=== PATIENT | male | born 1990 | race African-American/Black ===

== ENCOUNTER 2017-01-30 19:12 | Emergency (ER) ==
[2017-01-30] MEDS ORDERED: ASPIRIN PO STA (20:08)
--- NOTE | 2017-01-30 20:15 | PROVIDER DOCUMENTATION ---
Addendum entered and electronically signed by Karma Blue Scribe 01/30/17 22:07 : EKG Interpretation - EKG Time of EKG reading by physician:: 21:20 EKG Read and Signed by:: Nehemias Pierce EKG Interpretation (*Must complete 3 of following elements*): Normal Rate: 62 Rhythm: normal sinus rhythm Comments: normal ECG Original Note: HPI-General Adult - General Chief Complaint: Dizziness Stated Complaint: CHEST PAIN,DIZZY,HEADACHE Time Seen by Provider: 01/30/17 19:58 Source: patient Allergies/Adverse Reactions: Patient Allergies Allergy/AdvReac Type Severity Reaction Status Date / Time No Known Allergies Allergy Verified 12/25/16 13:51 Home Medications: Home Medication List Medication Instructions Recorded Confirmed Last Taken Type Hydroxyzine Pamoate [Vistaril] 25 mg PO BID PRN #20 capsule 12/25/16 Unknown Rx Hydroxyzine [Atarax] 25 mg PO TID #60 tablet 01/30/17 Unknown Rx - History of Present Illness -Gen Adult Nature of Presenting Problems: 26 y/o AAM c/o substernal chest pain that 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 Patient had this once before that awoke him from his sleep, has not f/ u with a plant maintenance manager. Patient states he has been waking up at night de to thoughts he was going to . He came home 3-4 years ago and his brother was when he found him. Has been taking a family member's [employer] to help him sleep at night for this. States he would like to f/u with mental health outpatient for this. Denies SI or HI. Patient's chest pain is no longer present. Denies sob, cough or recent illness. Review of Systems - Adult - REVIEW OF SYSTEMS - ADULT Constitutional: reports: no symptoms reported. denies: chills, fever, fatique Eyes: reports: no symptoms reported. denies: decreased vision, blurred vision, double vision, eye pain Ears, Nose, Mouth & Throat: reports: no symptoms reported. denies: ear pain, epistaxis, nose pain, throat pain Cardiovascular: reports: see HPI, chest pain. denies: irregular heart rate, palpitations Respiratory: reports: no symptoms reported. denies: cough, shortness of breath , wheezing Gastrointestinal: reports: no symptoms reported. denies: abdominal pain, diarrhea, nausea, vomiting Genitourinary: reports: no symptoms reported. denies: dysuria, discharge, frequency, incontinence Musculoskeletal: reports: no symptoms reported. denies: bone pain, back pain, muscle aches Integumentary: reports: no symptoms reported Neurological: reports: no symptoms reported. denies: ataxia, dizziness/vertigo , headache/migraines Psychiatric: reports: anxiety Endocrine: reports: no symptoms reported Hematologic/Lymphatic: reports: no symptoms reported Allergic/Immunologic: reports: no symptoms reported All Other Systems: Reviewed and Negative Past History - Adult - PAST MEDICAL HISTORY-ADULT Review of Records: reports: Old Records Reviewed, Nursing Assessment Review, Medications Reviewed Major Childhood Illnesses: reports: denies history Cardiovascular: reports: denies history Respiratory: reports: denies history Gastrointestinal: reports: denies history Genitourinary: reports: denies history Musculoskeletal: reports: denies history Neurological: reports: denies history Endocrine/Immune: reports: denies history Other Conditions: reports: denies history - PRIOR SURGERIES/PROCEDURES Surgical/Procedure History: reports: reviewed, not pertinent - IMMUNIZATION STATUS Childhood Immunizations: See Nurse Assessment Flu Vaccine: See Nurse Assessment - FAMILY HISTORY Family History: reviewed, not pertinent - SOCIAL HISTORY Smoking: denies Substance Use: none/never Alcohol Use Frequency: never Living Situation: family Physical Exam-General - PHYSICAL EXAM-ADULT Initial Vital Signs Reviewed: Yes - CONSTITUTIONAL General Appearance: appears well, alert, no apparent distress - EYES Eyes: PERRL/EOMI, pink conjunctivae - HEAD, EARS, NOSE, MOUTH & THROAT HENMT: normocephalic/atraumatic, moist mucous membranes - NECK Neck: non-tender, full range of motion, supple, normal inspection - RESPIRATORY Respiratory: chest non-tender, lungs clear, normal breath sounds, no pleuratic chest pain, no respiratory distress, no accessory muscle use. negative: respiratory distress, decreased breath sounds, accessory muscle use, crackles, rales, rhonchi, wheezing - CARDIOVASCULAR Cardiovascular: normal peripheral pulses, regular rate, rhythm - CHEST (BREASTS) Chest/Breast: negative: tenderness - MUSCULOSKELETAL Extremity: normal gait - SKIN Integumentary: normal color, normal turgor, warm/dry - NEUROLOGIC Neurologic: grossly normal, no motor/sensory deficits - PSYCHIATRIC Psych/Mental Status: normal mood/affect, normal thought content, normal thought process, oriented x 3 Progress - PLAN OF CARE/RESULTS Progress/Plan/Lab Results: Vital Signs Temp Pulse Resp BP Pulse Ox 01/30/17 19:26 98.2 F 63 18 117/77 100 No Known Allergies Allergy (Verified 12/25/16 13:51) Hydroxyzine Pamoate [Vistaril] 25 mg PO BID PRN #20 capsule 12/25/16 Laboratory 01/30/17 01/30/17 01/30/17 20:20 20:20 20:20 WBC 9.51 RBC 5.63 Hgb 15.7 Hct 43.5 MCV 77.3 L MCH 27.9 MCHC 36.1 RDW Std Deviation 12.2 Plt Count 249 MPV 9.8 Immature Gran % (Auto) 0.1 Neut % (Auto) 70.9 Lymph % (Auto) 21.1 [place] % (Auto) 6.6 Eos % (Auto) 0.7 Baso % (Auto) 0.6 Immature Gran # (Auto) 0.01 Neut # (Auto) 6.73 H Lymph # (Auto) 2.01 [place] # (Auto) 0.63 H Eos # (Auto) 0.07 Baso # (Auto) 0.06 PT 13.4 INR 0.99 APTT (Factor Assay) 28.3 D-Dimer < 0.22 L Sodium Potassium Chloride Carbon Dioxide Anion Gap BUN Creatinine Estimated GFR/1.73 m2 BUN/Creatinine Ratio Glucose Calculated Osmolality Calcium Magnesium Total Bilirubin AST ALT Alkaline Phosphatase Creatine Kinase Troponin T [id number] Pept 17 Total Protein Albumin Globulin Albumin/Globulin Ratio 01/30/17 01/30/17 20:20 20:20 WBC RBC Hgb Hct MCV MCH MCHC RDW Std Deviation Plt Count MPV Immature Gran % (Auto) Neut % (Auto) Lymph % (Auto) [place] % (Auto) Eos % (Auto) Baso % (Auto) Immature Gran # (Auto) Neut # (Auto) Lymph # (Auto) [place] # (Auto) Eos # (Auto) Baso # (Auto) PT INR APTT (Factor Assay) D-Dimer Sodium 137 Potassium 3.5 Chloride 103 Carbon Dioxide 24 L Anion Gap 11 BUN 10 Creatinine 0.9 Estimated GFR/1.73 m2 > 60 BUN/Creatinine Ratio 11 Glucose 90 Calculated Osmolality 272 Calcium 10.1 Magnesium 2.2 Total Bilirubin 1.90 H AST 18 ALT 14 Alkaline Phosphatase 88 Creatine Kinase 113 Troponin T 0.010 Ajq-I-Pyuoebencbm Pept Total Protein 8.1 Albumin 4.9 Globulin 3.0 Albumin/Globulin Ratio 2.0 Orders Category Date Time Status Cardiac Monitoring DIRECTED Care 01/30/17 20:08 Active Oxygen Therapy- ED Nursing DIRECTED Care 01/30/17 20:08 Active Saline Loc NOW Care 01/30/17 20:08 Active CHEST-2 VIEWS [RAD] Stat Exams 01/30/17 20:08 Taken CBC WITH ELECTRONIC DIFF [HEME] Stat Lab 01/30/17 20:20 Completed CK PROFILE [SP CHEM] Stat Lab 01/30/17 20:20 Completed COMPREHENSIVE METABOLIC PANEL [CHEM] Stat Lab 01/30/17 20:[address] D-D[address] [COAG] Stat Lab 01/30/17 20:20 Completed MAGNESIUM [CHEM] Stat Lab 01/30/17 20:20 Completed PRO B-NATRIURETIC PEPTIDE Stat Lab 01/30/17 20:20 Com[address]IME WITH INR PL [COAG] Stat Lab 01/30/17 20:[address] [COAG] Stat Lab 01/30/17 20:20 Completed TROPONIN T Stat Lab 01/30/17 20:20 Completed Aspirin Med 01/30/17 20:08 Discontinued 325 mg PO STAT STA EKG [EKG] Stat Ther 01/30/17 20:08 Ordered - XRAY 1 XRAY: Bilateral XRAY Study: Chest Impression: Normal (no pna ER prelim) Departure - Departure Time of Disposition Order: 21:31 DIAGNOSIS: Anxiety Disposition: HOME 01 Certified Medical Emergency: Emergent Condition: Stable Additional Instructions: Follow up with [facility] Address: [address], [place] [address] ED Follow Up Instructions: You have been treated by a care provider in the Emergency Department. These instructions are being provided to you so you can have an understanding of how to care for yourself upon discharge. Upon discharge from the Emergency Department, you are responsible for making arrangements for follow-up care by a physician of your choice. Take all prescribed medications as directed. Return to the Emergency Department immediately for any new or worsening symptoms. You may call the Physician Referral phone number at [phone] to obtain a list of Physicians who are taking new patients. Prescriptions: Hydroxyzine [Atarax] 25 mg PO TID #60 tablet Attestation - Physician/ PAL[place] Attestation Patient care was provided by Advanced Practice Provider:: Yes Advanced Practice Provider:: Felisa Martinez Advanced Practice Provider documentation review:: The Mid-level provider documentation, treatment plan and medical decision making was reviewed by the physician who agrees with all treatment and medical decision making by the MLP.
[2017-01-30 20:47] LABS: BASO% 0.6 % (0.0-0.8); EOS# 0.07 X1000 (0.0-0.7); EOS% 0.7 % (0.0-10.0); HEMATOCRIT 43.5 % (42.0-52.0); HEMOGLOBIN 15.7 g/dL (14.0-18.0); IMM GRAN# 0.01 X1000 (0.0-0.04); IMM GRAN% 0.1 % (0.0-0.5); LYMPH# 2.01 X1000 (1.2-3.4); LYMPH% 21.1 % (20.5-51.1); MANUAL DIFF NEEDED? NO; MCH 27.9 PG (27-31); MCHC 36.1 g/dL (33-37); MCV 77.3 FL (81-99); MONO# 0.63 X1000 (0.11-0.59); MONO% 6.6 % (1.7-9.3); MPV 9.8 FL (7.4-10.4); NEUT% 70.9 % (42.2-75.2); PLT 249 X1000 (130-400); RBC 5.63 XMIL (4.7-6.1)
[2017-01-30 20:50] LABS: INR 0.99 (0.86-1.15); PROTIME 13.4 Seconds (12.1-15.5); PTT PL 28.3 Seconds (22.6-43.9)
[2017-01-30 20:55] LABS: AGAP 11; ALBUMIN 4.9 g/dL (3.5-5.0); ALKALINE PHOSPHATASE 88 U/L (32-122); BUN 10 mg/dL (8-22); CALCIUM 10.1 mg/dL (8.8-10.2); CHLORIDE 103 mmol/L (98-107); CK PROFILE 113 U/L (24-204); COSMO 272; GOT 18 U/L (10-34); GPT 14 U/L (10-44); MAGNESIUM 2.2 mg/dL (1.5-2.7); POTASSIUM 3.5 mmol/L (3.5-5.1); SODIUM 137 mmol/L (136-145); TCO2 24 mmol/L (25-35); TOTAL PROTEIN 8.1 g/dL (6.3-8.3)
[2017-01-30 21:38] VITALS: BP 119/90
--- NOTE | 2017-01-31 06:45 | Diag Imaging Result Document ---
PROCEDURE NAME: CHEST-2 VIEWS - 01/30/2017 FRONTAL AND LATERAL CHEST, TWO VIEWS: COMPARISON: No comparison films. FINDINGS: The lungs are well expanded. The heart is not enlarged. The vessels are not distended. No pneumonia. No pleural effusions. No free air beneath the diaphragm. Slight curvature to the spine. IMPRESSION: No acute abnormality.
--- NOTE | 2017-01-31 07:39 | EKG Report ---
Test Performed on : 01/30/2017 9:20:16 PM Test Reason : CHEST PAIN Blood Pressure : / mmHG Vent. Rate : 062 BPM Atrial Rate : 062 BPM P-R Int : 174 ms QRS Dur : 088 ms QT Int : 414 ms P-R-T Axes : 051 073 003 degrees QTc Int : 420 ms Normal sinus rhythm. Normal ECG No previous ECGs available Unconfirmed Result
== END 2017-01-30 21:39 | disposition home or self-care (01) ==
LOC: P.ED 19:12
DX: F41.9 Anxiety disorder, unspecified (principal); R07.2 Precordial pain
CPT/HCPCS: 71020; 80053; 82550; 82948; 83735; 83880; 84484; 85025; 85379; 85610; 85730; 93005; 99284